=== PATIENT | male | born 1955 | race Caucasian/White ===

== ENCOUNTER 2017-01-31 10:09 | Outpatient (CLI) | payer MEDICARE ==
--- NOTE | 2017-01-31 17:36 | XRAY Report ---
TWO VIEW BILATERAL HIPS: 01/31/2017 CLINICAL INDICATION: Pain. Frontal view of the hips and pelvis, and frog-leg lateral views of the bilateral hips demonstrate oj ateral hip replacements in place. There is no evidence of fracture or hardware complication. The pe lvis appears unremarkable. IMPRESSION: BILATERAL HIP REPLACEMENTS, WITHOUT EVIDENCE OF FRACTURE OR HARDWARE COMPLICATION. JOB #: [id number] EXT JOB #:[id number]
== END 2017-01-31 10:10 | disposition home or self-care (01) ==
LOC: DI.S 10:09
PROVIDERS: ATTEND Physician Assistant
DX: M25.559 Pain in unspecified hip (principal); Z96.643 Presence of artificial hip joint, bilateral
CPT/HCPCS: 73521

== ENCOUNTER 2017-07-19 09:13 | Outpatient (CLI) | payer MEDICARE ==
[2017-07-19 19:17] LABS: ALBUMIN/GLOBULIN RATIO 1.3 (1.0-2.2); BILIRUBIN,TOTAL 0.6 mg/dL (0.2-1.0); BUN - BLOOD UREA NITROGEN 18 mg/dL (6-20); CALCIUM 8.9 mg/dL (8.5-10.3); CARBON DIOXIDE - CO2 26 mmol/L (21-32); CHLORIDE 105 mmol/L (101-111); CHOLESTEROL 209 mg/dL; CREATININE 0.6 mg/dL (0.6-1.2); GFR - MDRD 136 (>89); GLUCOSE 115 mg/dL (70-100); HDL CHOLESTEROL 52 mg/dL; LDL/HDL RATIO 2.8 (<3.6); POTASSIUM 3.9 mmol/L (3.5-5.0); SODIUM 138 mmol/L (135-145); TOTAL PROTEIN 7.5 g/dL (6.7-8.2); TRIGLYCERIDES 62 mg/dL; VLDL CHOLESTEROL 12 mg/dL
== END 2017-07-19 09:14 | disposition home or self-care (01) ==
LOC: LAB.F 09:13
PROVIDERS: ATTEND Physician Assistant
DX: Z00.00 Encounter for general adult medical examination without abnormal findings (principal); I10 Essential (primary) hypertension
CPT/HCPCS: 36415; 80053; 80061; G0103; 84153

== ENCOUNTER 2018-09-24 10:06 | Outpatient (CLI) | payer MEDICARE, OTHER ==
--- NOTE | 2018-09-24 11:18 | XRAY Report ---
Reason: PAIN IN LEFT KNEE Procedure Date: 09/24/2018 Accession Number: [id number] / [id number] Procedure: XR - Knee 3 View LT CPT Code: FULL RESULT: EXAM: LEFT KNEE RADIOGRAPHY EXAM DATE: 09/24/2018 10:33 AM. CLINICAL HISTORY: Pain in left knee. COMPARISON: HIP BILAT 01/31/2017 10:21 AM. TECHNIQUE: 3 views. FINDINGS: Bones: No fracture is identified. Joints: There is a joint effusion. Medial subluxation of the femur in relation to the tibia. Advanced degenerative changes of the weightbearing compartments. Soft Tissues: Normal. No soft tissue swelling. IMPRESSION: Advanced degenerative changes including medial subluxation of the femur in relation to the tibia. RADIA
== END 2018-09-24 10:07 | disposition home or self-care (01) ==
LOC: DI 10:06
PROVIDERS: ATTEND Internal Medicine
DX: M17.12 Unilateral primary osteoarthritis, left knee (principal); S83.192A Other subluxation of left knee, initial encounter

== ENCOUNTER 2020-08-13 08:00 | Outpatient (CLI) | payer MEDICARE, OTHER | END 2020-08-13 23:59 | disposition home or self-care (01) | LOC: LAB.R 08:00 | PROVIDERS: ATTEND Physician Assistant Medical | DX: R05 Cough (principal); R53.83 Other fatigue; Z20.822 Contact with and (suspected) exposure to COVID-19 ==

== ENCOUNTER 2020-08-13 08:00 | Outpatient (CLI) | payer MEDICARE, OTHER ==
--- NOTE | 2020-08-13 17:00 | XRAY Report ---
PROCEDURE: Chest 2 View X-Ray INDICATIONS: COUGH TECHNIQUE: 2 view(s) of the chest. COMPARISON: None. FINDINGS: Surgical changes and devices: None. Lungs and pleura: No pleural effusions or pneumothorax. Lungs are clear. Mediastinum: Mediastinal contours are normal. Heart size is normal. Bones and chest wall: No suspicious bony abnormalities. Soft tissues appear unremarkable. IMPRESSION: No acute cardiopulmonary disease process. Reviewed by: Janeth Britt MD, PhD on 08/13/2020 3:59 PM [facility] Approved by: Janeth Britt MD, PhD on 08/13/2020 3:59 PM [facility] Station ID: [id number]
== END 2020-08-13 23:59 | disposition home or self-care (01) ==
LOC: DI.S 08:00
PROVIDERS: ATTEND Physician Assistant Medical
DX: R05 Cough (principal); R53.83 Other fatigue; Z20.822 Contact with and (suspected) exposure to COVID-19
CPT/HCPCS: 71046; U0004

== ENCOUNTER 2023-05-25 09:43 | Outpatient (CLI) | payer MEDICARE, OTHER ==
--- NOTE | 2023-05-25 11:55 | CT Report ---
PROCEDURE: CERVICAL SPINE WO INDICATIONS: HEAD INJURY, FALL TECHNIQUE: Noncontrast 3 mm thick sections acquired from the skull base to the T4 level. Sagittal and coronal r eformats were then constructed. For radiation dose reduction, the following was used: automated exp osure control, adjustment of mA and/or kV according to patient size. COMPARISON: None. FINDINGS: Image quality: Excellent. Bones: No fractures or dislocations. Straightening of normal cervical lordosis with mild reversal c entered at C5. Mild grade 1 anterolisthesis of C3 on C4 and C7 on T1. Multilevel degenerative changes of the cervical spine with facet and uncovertebral arthropathy, disc height loss, endplate degenerat saibne changes and spurring. Decreased osseous mineralization. Visualized superior ribs are intact. Soft tissues: Prevertebral soft tissues are normal in thickness. No paravertebral hematomas. No ap ical pneumothoraces. IMPRESSION: 1.No acute fracture or traumatic listhesis. 2.Multilevel degenerative changes of the cervical spine. Reviewed by: Ty Dewitt MD on 05/25/2023 11:54 AM PDT Approved by: Ty Dewitt MD on 05/25/2023 11:54 AM PDT Station ID: [id number]
--- NOTE | 2023-05-25 11:57 | CT Report ---
PROCEDURE: HEAD WO INDICATIONS: HEAD INJURY, FALL TECHNIQUE: Noncontrast 4.5 mm thick angled axial sections acquired from the foramen magnum to the vertex. For r adiation dose reduction, the following was used: automated exposure control, adjustment of mA and/or kV according to patient size. COMPARISON: None. FINDINGS: Image quality: Excellent. CSF spaces: Basal cisterns are patent. No extra-axial fluid collections. Ventricles are normal in size and shape. Brain: No midline shift. No intracranial masses or hemorrhage. Mild age-related global volume loss . Blanchard-white matter interface is normal. Skull and face: Calvarium and visualized facial bones are intact, without suspicious lesions. Sinuses: Visualized sinuses and mastoids are clear. IMPRESSION: No acute intracranial pathology. Reviewed by: Ty Dewitt MD on 05/25/2023 11:56 AM PDT Approved by: Ty Dewitt MD on 05/25/2023 11:56 AM PDT Station ID: [id number]
== END 2023-05-25 09:44 | disposition home or self-care (01) ==
LOC: DI 09:43
PROVIDERS: ATTEND Internal Medicine
DX: S09.93XA Unspecified injury of face, initial encounter (principal); S09.90XA Unspecified injury of head, initial encounter; M47.812 Spondylosis without myelopathy or radiculopathy, cervical region; R53.83 Other fatigue; G25.81 Restless legs syndrome; E66.8 Other obesity
CPT/HCPCS: 36415; 80053; 80061; 82728; 83036; 83540; 83721; 84443; 84466; 85025

== ENCOUNTER 2023-05-25 10:45 | Outpatient (CLI) | payer MEDICARE, OTHER ==
[2023-05-25 15:12] LABS: BASOPHILS # (AUTO) 0.1 10^3/uL (0.0-0.1); BASOPHILS % (AUTO) 0.9 %; EOSINOPHILS # (AUTO) 0.2 10^3/uL (0.0-0.7); EOSINOPHILS % (AUTO) 2.9 %; HCT - HEMATOCRIT 44.8 % (42.0-52.0); HGB - HEMOGLOBIN 14.4 g/dL (14.0-18.0); LYMPHOCYTES # (AUTO) 1.7 10^3/uL (1.5-3.5); LYMPHOCYTES % (AUTO) 22.5 %; MEAN CORPUSCULAR HEMOGLOBIN 26.9 pg (27.0-31.0); MEAN CORPUSCULAR HGB CONC 32.1 g/dL (32.0-36.0); MEAN CORPUSCULAR VOLUME 83.6 fL (80.0-94.0); MEAN PLATELET VOLUME 9.1 fL (7.4-11.4); MONOCYTES # (AUTO) 0.8 10^3/uL (0.0-1.0); MONOCYTES % (AUTO) 10.2 %; NEUTROPHILS # (AUTO) 4.7 10^3/uL (1.5-6.6); NEUTROPHILS % (AUTO) 62.2 %; PLT - PLATELET COUNT 413 10^3/uL (130-450); RED BLOOD COUNT 5.36 10^6/uL (4.70-6.10); RED CELL DISTRIBUTION WIDTH 13.9 % (12.0-15.0); WHITE BLOOD COUNT 7.6 x10^3/uL (4.8-10.8)
[2023-05-25 15:34] LABS: % IRON SATURATION 9 % (20-50); ALBUMIN 4.2 g/dL (3.2-5.5); ALBUMIN/GLOBULIN RATIO 1.2 (1.0-2.2); ALKALINE PHOSPHATASE 78 IU/L (42-121); ALT ALANINE AMINOTRANSFERASE 33 IU/L (10-60); AST ASPARTATE AMINOTRANSFERASE 29 IU/L (10-42); BILIRUBIN,TOTAL 0.3 mg/dL (0.2-1.0); BUN - BLOOD UREA NITROGEN 14 mg/dL (6-20); CALCIUM 9.5 mg/dL (8.5-10.3); CARBON DIOXIDE - CO2 30 mmol/L (21-32); CHLORIDE 102 mmol/L (101-111); CHOL/HDL RATIO 4.6 (<5.0); CHOLESTEROL 180 mg/dL; CREATININE 0.6 mg/dL (0.6-1.3); GFR - MDRD 134 (>89); GLUCOSE 106 mg/dL (74-104); HDL CHOLESTEROL 39 mg/dL; IRON 37 ug/dL (50-212); LDL CHOLESTEROL,CALCULATED 119 mg/dL; LDL/HDL RATIO 3.1 (<3.6); POTASSIUM 4.3 mmol/L (3.5-4.5); SODIUM 137 mmol/L (135-145); TOTAL IRON BINDING CAPACITY 398 ug/dL (250-450); TOTAL PROTEIN 7.7 g/dL (6.4-8.9); TRANSFERRIN 284 mg/dL (203-362); TRIGLYCERIDES 108 mg/dL (48-352); VLDL CHOLESTEROL 22 mg/dL
[2023-05-25 15:35] LABS: THYROID STIMULATING HORMONE 1.03 uIU/mL (0.34-5.60)
[2023-05-25 15:41] LABS: FERRITIN 62.6 ng/mL (23.9-336.2)
[2023-05-25 16:42] LABS: ESTIMATED AVERAGE GLUCOSE 131 mg/dL (70-100); HEMOGLOBIN A1c% 6.2 % (4.27-6.07)
== END 2023-05-25 10:46 | disposition home or self-care (01) ==
LOC: LAB.S 10:45
PROVIDERS: ATTEND Internal Medicine
DX: R53.83 Other fatigue (principal); G25.81 Restless legs syndrome; E66.8 Other obesity
CPT/HCPCS: 36415; 80053; 80061; 82728; 83036; 83540; 83721; 84443; 84466; 85025

== ENCOUNTER 2023-08-21 10:37 | Outpatient (CLI) | payer MEDICARE, OTHER ==
--- NOTE | 2023-08-21 12:07 | Sleep Patient Instructions ---
Sleep Center Visit Summary - Patient Visit Information Reason for Visit: Initial consult for evaluation of sleep disordered breathing and other sleep issues. - Patient Instructions Instructions Attached: Sleep Study Additional Instructions: You will be completing a sleep study, either an in-lab polysomnography (PSG) or home sleep study (HST). You will follow-up in the sleep care office after the sleep study is completed to hear the results and talk about therapy, if needed. You will be called by our office staff to schedule this appointment, but you may contact us with any questions. - Clinic Information Contact: [facility] [address] [place] [address] [email or web address] T: [phone]
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
[2023-08-21 12:58] VITALS: BP 184/92; O2SAT 98
== END 2023-08-21 10:38 | disposition home or self-care (01) ==
LOC: SC 10:37
PROVIDERS: ATTEND Nurse Practitioner Family
DX: G47.10 Hypersomnia, unspecified (principal); G47.8 Other sleep disorders; R06.81 Apnea, not elsewhere classified; R06.83 Snoring; Z87.891 Personal history of nicotine dependence; I10 Essential (primary) hypertension; E66.9 Obesity, unspecified; Z68.35 Body mass index [BMI] 35.0-35.9, adult
CPT/HCPCS: 99203; G0463; 99212

== ENCOUNTER 2023-08-25 19:14 | Outpatient (CLI) | payer MEDICARE, OTHER | END 2023-08-25 19:15 | disposition home or self-care (01) | LOC: SC 19:14 | PROVIDERS: ATTEND Nurse Practitioner Family | DX: G47.33 Obstructive sleep apnea (adult) (pediatric) (principal); G47.61 Periodic limb movement disorder; E66.9 Obesity, unspecified; Z68.35 Body mass index [BMI] 35.0-35.9, adult; I10 Essential (primary) hypertension; F32.A Depression, unspecified | CPT/HCPCS: 95810 ==

== ENCOUNTER 2023-09-01 15:12 | Emergency (ER) | payer MEDICARE, OTHER ==
[2023-09-01 15:24] VITALS: BP 180/100
[2023-09-01 15:55] LABS: BASOPHILS # (AUTO) 0.1 10^3/uL (0.0-0.1); BASOPHILS % (AUTO) 0.5 %; EOSINOPHILS # (AUTO) 0.1 10^3/uL (0.0-0.7); EOSINOPHILS % (AUTO) 0.5 %; HCT - HEMATOCRIT 50.8 % (42.0-52.0); HGB - HEMOGLOBIN 16.1 g/dL (14.0-18.0); LYMPHOCYTES # (AUTO) 1.9 10^3/uL (1.5-3.5); LYMPHOCYTES % (AUTO) 17.5 %; MEAN CORPUSCULAR HEMOGLOBIN 26.5 pg (27.0-31.0); MEAN CORPUSCULAR HGB CONC 31.7 g/dL (32.0-36.0); MEAN CORPUSCULAR VOLUME 83.7 fL (80.0-94.0); MEAN PLATELET VOLUME 9.1 fL (7.4-11.4); MONOCYTES # (AUTO) 0.9 10^3/uL (0.0-1.0); MONOCYTES % (AUTO) 8.5 %; NEUTROPHILS # (AUTO) 7.9 10^3/uL (1.5-6.6); NEUTROPHILS % (AUTO) 72.7 %; PLT - PLATELET COUNT 296 10^3/uL (130-450); RED BLOOD COUNT 6.07 10^6/uL (4.70-6.10); RED CELL DISTRIBUTION WIDTH 14.5 % (12.0-15.0); WHITE BLOOD COUNT 10.9 x10^3/uL (4.8-10.8)
[2023-09-01 16:01] LABS: BILIRUBIN,URINE NEGATIVE (NEGATIVE); GLUCOSE, URINE (UA) NEGATIVE (NEGATIVE); KETONES,URINE (UA) NEGATIVE (NEGATIVE); LEUKOCYTE ESTERASE, URINE NEGATIVE (NEGATIVE); NITRITE,URINE NEGATIVE (NEGATIVE); OCCULT BLOOD,URINE NEGATIVE (NEGATIVE); PH,URINE 5.5 PH (5.0-7.5); PROTEIN,URINE 100 mg/dL (NEGATIVE); UROBILINOGEN,URINE 0.2 (NORMAL) E.U./dL (NORMAL)
[2023-09-01 16:02] LABS: CLARITY,URINE CLEAR (CLEAR)
[2023-09-01 16:08] LABS: BACTERIA,URINE None Seen /HPF (None Seen); CASTS, URINE 0-2 Hyaline Casts /LPF; MUCUS,URINE Moderate Strands; RBC,URINE 0-5 /HPF (0-5); SQUAMOUS EPITHELIAL CELL,UR NONE SEEN (<= Few); WBC,URINE 0-3 /HPF (0-3)
[2023-09-01 16:13] LABS: AMPHETAMINE SCREEN,URINE NEGATIVE (NEGATIVE); BARBITURATE SCREEN,UR NEGATIVE (NEGATIVE); BENZODIAZEPINES SCREEN, URINE NEGATIVE (NEGATIVE); BUPRENORPHINE SCREEN, URINE NEGATIVE (NEGATIVE); COCAINE SCREEN URINE NEGATIVE (NEGATIVE); METHADONE SCREEN, URINE NEGATIVE (NEGATIVE); METHAMPHETAMINES SCREEN, URINE NEGATIVE (NEGATIVE); OPIATE SCREEN, URINE NEGATIVE (NEGATIVE); OXYCODONE SCREEN, URINE NEGATIVE (NEGATIVE); THC CANNABINOID SCREEN, URINE POSITIVE (NEGATIVE); TRICYCLIC ANTIDEPRESSANT,URINE NEGATIVE (NEGATIVE)
[2023-09-01 16:13] LABS: ALBUMIN 4.8 g/dL (3.2-5.5); ALBUMIN/GLOBULIN RATIO 1.4 (1.0-2.2); ALKALINE PHOSPHATASE 95 IU/L (42-121); ALT ALANINE AMINOTRANSFERASE 32 IU/L (10-60); AST ASPARTATE AMINOTRANSFERASE 36 IU/L (10-42); BILIRUBIN,TOTAL 0.5 mg/dL (0.2-1.0); BUN - BLOOD UREA NITROGEN 15 mg/dL (6-20); CARBON DIOXIDE - CO2 26 mmol/L (21-32); CHLORIDE 102 mmol/L (101-111); CK- CREATINE KINASE 353 IU/L (30-223); CREATININE 0.8 mg/dL (0.6-1.3); ETOH - ETHANOL < 10.0 mg/dL; GFR - MDRD 96 (>89); GLUCOSE 123 mg/dL (74-104); LIPASE 23 U/L (11-82); MAGNESIUM 1.9 mg/dL (1.7-2.3); SODIUM 138 mmol/L (135-145); TOTAL PROTEIN 8.3 g/dL (6.4-8.9)
[2023-09-01 16:14] LABS: ACETAMINOPHEN < 0.1 ug/mL; SALICYLATE < 1.5 mg/dL
[2023-09-01 16:25] LABS: THYROID STIMULATING HORMONE 1.15 uIU/mL (0.34-5.60)
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
[2023-09-01 20:38] VITALS: O2SAT 99
== END 2023-09-01 20:37 | disposition home or self-care (01) ==
LOC: ED 15:12
DX: R45.1 Restlessness and agitation (principal); F39 Unspecified mood [affective] disorder; Z87.891 Personal history of nicotine dependence
CPT/HCPCS: 36415; 80053; 80306; 80307; 81001; 82550; 83690; 83735; 84443; 85025; 99283; G0425; G0480; Q3014; 80320; 80329; 81003; 87086